=== PATIENT | female | born 2000 | race Caucasian/White ===

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

== ENCOUNTER 2024-01-14 12:30 | Inpatient (IN) | payer OTHER ==
[2024-01-14 13:35] LABS: BASO % 0.5 % (0-2.0); EOS % 0.9 % (0-4.5); HEMATOCRIT 35.7 % (32.4-45.2); HEMOGLOBIN 11.5 GM/dL (10.7-15.3); LYMPH % 19.9 % (8-40); MCH 25.2 pg (25.7-33.7); MCHC 32.1 g/dl (32.0-36.0); MEAN CELL VOLUME 78.5 fl (80-96); MEAN PLT VOLUME 8.7 fl (7.5-11.1); MONO % 6.9 % (3.8-10.2); NEUT % 71.8 % (42.8-82.8); PLATELET COUNT 273 10^3/uL (134-434); RBC 4.55 M/mm3 (3.60-5.2); RDW 16.3 % (11.6-15.6); WHITE BLOOD COUNT 9.7 K/mm3 (4.0-10.0)
[2024-01-14 13:44] LABS: INR 0.97 (0.83-1.09); PROTHROMBIN TIME (PATIENT) 11.3 SEC (9.7-13.0)
[2024-01-14 13:46] LABS: ACTIVATED PTT 29.4 SECONDS (25.2-36.5)
[2024-01-14] MEDS ORDERED: OXYTOCIN 20 UNITS in 0.9% NS 20 UNIT/1,000 ML INFUS.BAG IV ONE ×3 (13:57→15:17)
[2024-01-14] MEDS ORDERED: LIDOCAINE 1%/EPI 1:100000 (20 ML MULTI DOSE VIAL) ONE (13:57)
[2024-01-14] MEDS: ELECTROLYTE-148 SOLN 1,000 ML IV SCH (14:00)
[2024-01-14 14:08] LABS: POTASSIUM 3.8 mmol/L (3.5-5.1)
[2024-01-14 14:09] LABS: CALCIUM 8.9 mg/dL (8.5-10.1)
[2024-01-14 14:10] LABS: BLOOD UREA NITROGEN 8.4 mg/dL (7-18)
[2024-01-14 14:12] LABS: CREATININE 0.5 mg/dL (0.55-1.3)
[2024-01-14] MEDS ORDERED: BISACODYL 10 MG SUPP.RECT RC PRN (14:22)
[2024-01-14] MEDS ORDERED: BENZOCAINE 28 GM HEMORRHOIDAL OINTMENT TP PRN (14:22)
[2024-01-14 14:38] VITALS: BMI 32.0
[2024-01-14] MEDS: OXYTOCIN 20 UNITS in 0.9% NS 20 UNIT/1,000 ML INFUS.BAG IV SCH (15:30)
[2024-01-14 15:50] LABS: CORD BASE EXCESS -2.5 mmol/L (0-2); CORD HCO3 24.2 mmHg (20-29); CORD PCO2 48.1 mmHg (30-78); CORD pH 7.319 (7.14-7.44)
[2024-01-14] MEDS ORDERED: IBUPROFEN 600 MG TABLET (FP) PO ONE (15:50)
[2024-01-14] MEDS: IBUPROFEN 600 MG TABLET (FP) PO PRN (15:53)
[2024-01-14] MEDS: oxyCODONE HCL 5 MG TABLET PO ONE (17:50)
[2024-01-14] MEDS: BENZOCAINE 20% 57 GM BOTTLE TP PRN (20:06)
[2024-01-14] MEDS: WITCH HAZEL 50% (TUCKS) 40 PAD/JAR PAD TP PRN (20:07)
[2024-01-15] MEDS: ACETAMINOPHEN 325 MG TABLET (FP) PO PRN (00:20)
[2024-01-15 07:12] LABS: BASO % 0.2 % (0-2.0); EOS % 2.2 % (0-4.5); HEMATOCRIT 31.4 % (32.4-45.2); HEMOGLOBIN 10.1 GM/dL (10.7-15.3); LYMPH % 28.5 % (8-40); MCH 25.3 pg (25.7-33.7); MCHC 32.1 g/dl (32.0-36.0); MEAN CELL VOLUME 78.8 fl (80-96); MONO % 8.4 % (3.8-10.2); NEUT % 60.7 % (42.8-82.8); PLATELET COUNT 246 10^3/uL (134-434); RBC 3.98 M/mm3 (3.60-5.2); RDW 16.9 % (11.6-15.6); WHITE BLOOD COUNT 11.1 K/mm3 (4.0-10.0)
[2024-01-15] MEDS: FLU VACCINE (FLULAVAL) PF 60 MCG/0.5 ML SYRINGE 2023-2024 IM ONE (12:12)
[2024-01-16] MEDS: SENNOSIDES/DOCUSATE COMBO (SENNA PLUS) TABLET (UD) PO PRN (01:18)
[2024-01-16 10:28] VITALS: BP 108/61; PULSE 90; RESP 16; TEMP 97.8
== END 2024-01-16 18:00 | disposition home or self-care (01) | DRG 560 ==
LOC: JLDR 12:30 → J3W 17:00
PROVIDERS: ADMIT Student in an Organized Health Care Education/Training Program; ATTEND Student in an Organized Health Care Education/Training Program
PROC: 10E0XZZ Delivery of Products of Conception, External Approach (ICD-10-PCS; principal; 2024-01-14)
DX: O80 Encounter for full-term uncomplicated delivery (principal); Z37.0 Single live birth; Z3A.40 40 weeks gestation of pregnancy
CPT/HCPCS: 36415; 36600; 80048; 82803; 85025; 85610; 85730; 86780; 86850; 86900; 86901; 90686; G0008